=== PATIENT | female | born 1980 | race African-American/Black ===

== ENCOUNTER 2019-09-17 11:52 | Observation (INO) | payer OTHER ==
[2019-09-17] VITALS (9 sets, daily range): BP systolic 103–111; BP diastolic 50–76; TEMP 97.8–99.2; Ht 152.4 cm; Wt 77.6 kg
[~2019-09-17] VITALS: Ht 152.4 cm; Wt 77.6 kg
[2019-09-18] VITALS: BP 91/44; TEMP 98.7
[2019-09-18 00:20] VITALS: BP 106/43; TEMP 99.2
[2019-09-18 03:52] VITALS: BP 103/51; TEMP 99.2
[2019-09-18 07:56] LABS: PLATELET COUNT 337 K/uL (152-353)
[2019-09-18 08:05] VITALS: BP 91/46; TEMP 98.2
[2019-09-18 08:12] LABS: POTASSIUM 3.8 mmol/L (3.6-5.2)
[2019-09-18 12:08] VITALS: BP 95/36; TEMP 98.8
[2019-09-18] MEDS ORDERED: FERROUS SULF325 MG PO (13:12)
== END 2019-09-18 13:27 | disposition home or self-care (01) ==
LOC: MED/SURG 11:52
PROVIDERS: ADMIT Family Medicine
PROC: 30233N1 Transfusion of Nonautologous Red Blood Cells into Peripheral Vein, Percutaneous Approach (ICD-10-PCS; principal; 2019-09-17)
PROC: 30233N1 Transfusion of Nonautologous Red Blood Cells into Peripheral Vein, Percutaneous Approach (ICD-10-PCS; 2019-09-18)
DX: D50.8 Other iron deficiency anemias (principal)
CPT/HCPCS: 80053; 85014; 85018; 85027; 86850; 86900; 86901; 86922; 99220; G0378; G0379; P9016

== ENCOUNTER 2021-02-13 20:37 | Emergency (ER) | payer OTHER ==
[~2021-02-13] VITALS: Ht 152.4 cm; Wt 72.6 kg
[~2021-02-13 20:37] MED LIST: FERROUS SULF325 MG PO
[2021-02-13 22:15] VITALS: BP 139/61; TEMP 98.1
== END 2021-02-13 22:15 | disposition home or self-care (01) ==
LOC: ED 20:37
DX: N92.1 Excessive and frequent menstruation with irregular cycle (principal)
CPT/HCPCS: 81000; 81025; 96372; 99283; J1885